=== PATIENT | female | born 1995 ===

== ENCOUNTER 2023-06-20 22:55 | Emergency (ER) | payer SELFPAY ==
[2023-06-20 22:59] VITALS: BP 177/79; PULSE 91; RESP 19; TEMP 98.5; BMI 27.4
== END 2023-06-21 00:02 | disposition home or self-care (01) ==
LOC: FER 22:55
DX: R05.9 Cough, unspecified (principal); R50.9 Fever, unspecified; B34.9 Viral infection, unspecified; R11.0 Nausea; Z20.822 Contact with and (suspected) exposure to COVID-19
CPT/HCPCS: 0241U-QW; 93005; 99284-25